=== PATIENT | male | born 1980 | race Caucasian/White ===

== ENCOUNTER 2016-10-03 12:02 | Inpatient (IN) | payer BC ==
[2016-10-03 12:58] LABS: Hematocrit 45 % (42-52); Hemoglobin 15.2 g/dl (14.0-18.0); Mean Corpuscular HGB Conc 34 g/dl (31-36); Mean Corpuscular Hemoglobin 30 pg (27-31); Mean Corpuscular Volume 88 fL (80-94); Mean Platelet Volume 8 um3 (7.4-10.4); Red Blood Count 5.09 10^6/ul (4.0-5.4); Red Cell Distribution Width 12 % (10.5-15); White Blood Count 7.1 10^3/ul (3.5-10.8)
--- NOTE | 2016-10-03 13:05 | RAD ---
INDICATION: Syncope. COMPARISON: Comparison is made with a prior chest x-ray study from July 02, 2015. TECHNIQUE: A portable view of the chest was obtained. FINDINGS: Cardiac and mediastinal contours appear to be within normal limits. The lungs are clear. No pleural effusion is seen. IMPRESSION: NO EVIDENCE FOR ACUTE DISEASE.
[2016-10-03 13:10] LABS: Albumin 4.3 g/dL (3.2-5.2); BUN/Creatinine Ratio 14.9 (8-20); Calcium 9.2 mg/dL (8.6-10.3); EGFR African American 106.9 (>60); EGFR Non-African American 83.1 (>60); Globulin 2.6 g/dL (2-4); Potassium 5.4 mmol/L (3.5-5.0); Total Bilirubin 0.7 mg/dL (0.2-1.0); Total Protein 6.9 g/dL (6.4-8.9)
[2016-10-03 13:11] LABS: Troponin I 0.01 ng/mL (<0.04)
[2016-10-03 13:23] LABS: TSH (Thyroid Stimulating Horm) 2.43 mcIU/mL (0.34-5.60)
[2016-10-03] MEDS ORDERED: NS 0.9% 1000 ML* 1,000 ML IV ONE (13:23)
[2016-10-03] MEDS ORDERED: Acetaminophen TAB* 325 MG PO ONE (13:56)
--- NOTE | 2016-10-03 16:00 | CONS ---
ER CONSULTATION: DATE OF CONSULT: 10/03/16 REASON FOR CONSULTATION: Syncope and bradycardia. CHIEF COMPLAINT: Losing consciousness. HISTORY OF PRESENT ILLNESS: Mr. Agee is a 36-year-old gentleman who was in his usual state of health until yesterday. He awoke yesterday morning feeling just generally crummy, went to work without incident, got normal sleep and this morning still felt generally crummy and under the weather. 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 At some point in the morning he had an episode of diarrhea and at work felt the urge to have another bowel movement and on the way to the bathroom started to feel very dizzy and weak as if he might faint. He said he was on all fours on the ground when a coworker found him, was going to assist him to the bathroom, but then with standing he lost consciousness. public works manager were called, then when sat up to get orthostatic vitals he passed out. He was brought to the emergency room and in the emergency room, orthostatics were again attempted on the monitor and he became white as a sheet, diaphoretic, lost consciousness. Some of his electrodes were pulled off, so we do not have the full monitor strips for the event but according to the nurse present, they were unable to get any radial pulses and the strips available show that he developed a sinus bradycardia followed by sinus pause with some junctional escape beats. The patient is currently lying down getting intravenous fluid and feeling better but he says he still feels as if he tried to stand up and walk out of here, the events would recur. The patient has had no over the counter or prescription medications. The patient has had no recent travel or change in routine. PAST MEDICAL HISTORY: 1. The patient has a past medical history of vagally mediate syncope since childhood (one episode while crying with frustration, anger, an episode watching somebody give blood and more). 2. History of lobar pneumonia, 06/29/15. 3. History of mono. 4. Sinusitis. MEDICATIONS: He is on no home medications. ALLERGIES: No known drug allergies. FAMILY HISTORY: Significant in that his father has a history of vagal syncope. SOCIAL HISTORY: The patient works at [employer]. Nonsmoker, never smoked. No history of recreational drug use. No recent alcohol intake. He lives with his Marybeth who is present during the exam. REVIEW OF SYSTEMS: See history of present illness. He was fine until he developed the above symptoms. He denies chest pain, pressure, heaviness, shortness of breath, coughing. He denies any recurrence of the sinus symptoms he had prior to his pneumonia. No hematuria or dysuria. He is in areas where he could be exposed to Lyme, but denies any awareness of tic bites. All other review of systems was unremarkable. PHYSICAL EXAM: On exam, the patient is 6 feet tall, weighs 185 pounds, has a BMI of 25. Blood pressure on arrival to the ER was 132/75 with a pulse of 68. Sitting, the patient's blood pressure is 136/76 with a pulse of 73. Standing, his pulse rate dropped to 27 and blood pressure unable to be obtained initially and 15 minutes later blood pressure documented at 115/75, strips document marked sinus bradycardia. Currently, the blood pressure is 119/75, pulse is 77 , oxygen saturation 99% on room air and T-max is 101.2. General Appearance: Fit appearing middle aged male lying completely flat, wrapped in towels, in no acute distress. He awakens easily and is appropriate. Psychologically, pleasant , cooperative. Neurologically, awake, alert, and oriented to person, place and time. Cranial nerves II through XII intact. Normal sensory and motor function in the upper and lower extremities. Normal movements in bed. Skin is now warm and dry. No rashes or cyanosis. HEENT: Pupils are equal and round. Mucous membranes moist. Neck without increased JVP. Breath sounds were clear with good effort in all olivo. No wheezing, rales or rhonchi. Coronary: S1, S2 regular, a bit distant but no murmurs or rubs. Abdomen: Soft, nontender. No hepatosplenomegaly. Lower extremities are warm. Strips reviewed are consistent with normal sinus rhythm to sinus bradycardia to a sinus pause with junctional escape beat and a long episode of what appears to be asystole, but with coordinating with the nurses, in fact the leads having come off. DIAGNOSTIC STUDIES/LAB DATA: White count 7.6, hemoglobin 15.2, hematocrit 45, platelets 193. Increased neutrophils, low lymphocytes on the differential. INR 1.1, PTT 38.5. Sodium 135, potassium 5.4, chloride 104, CO2 27, BUN 15, creatinine 1.01, glucose 142 (was mildly elevated with pneumonia as well). Calcium 9.2, lactic acid 1.4, magnesium 2.0, AST 15, ALT 18. Troponin 0.01. TSH 2.43. From labs in 2015, mono negative at that time. IMPRESSION: In summary, David Agee is a 36-year-old gentleman who presented to the emergency room after syncopal events at work at [employer] in the setting of what appears to be a viral illness with a GI component with diarrhea and at that time he fainted. He had the trigger of needing to go to the bathroom. He has a history of vagally mediated events in the past. The witnessed events here consistent with triggers of orthostasis and I suspect that the baroreceptor response is even greater than the chronotropic drop from the high vagal tone. I think he presented with vagally mediated bradycardia as opposed to a primary cardiac etiology. At this point in time, I do not recommend a pacemaker. I did discuss with him that in some cases these are implanted and he was surprised. I recommend for now hydration as is being done, supportive care due to viral illness. I spent considerable time explaining to the patient and his potential triggers, as well as management strategies of staying hydrated and getting to the ground with a prodrome. Very mild hyperkalemia is noted. It is possible that is related to stress or even mild hemolysis but it may be worth looking into the possibility of adrenal insufficiency in the future. Lyme titer was sent as it is endemic in our community and could certainly present like this as well. As this is consistent with a vagally mediated event , I think if he improves with hydration and time, he could go home from the ED but re-evaluation will be necessary post aggressive hydration and time. I am happy to see the patient in followup if desired in the future. CC: Dr. Leigh Zavaleta* [id number]/CPS #: [id number] ROCIO
[2016-10-03] MEDS ORDERED: Ondansetron INJ* 2 MG/ML VIAL IV ONE (17:35)
[2016-10-03] MEDS ORDERED: Ibuprofen TAB* 600 MG PO PRN (18:42)
[2016-10-03] MEDS ORDERED: Ondansetron INJ* 2 MG/ML VIAL IV PRN (18:47)
--- NOTE | 2016-10-03 19:36 | ED ---
Taylor Marrero Matthew, scribed for Jorge A Haider MD on 10/03/16 at 1248 . Syncope/Near Syncope - HPI Summary HPI Summary: A 36 y/o male presents to the ED after syncopating three times since this morning. The patient states that he hasn't been feeling well since yesterday, which worsened today. He's been having diarrhea since this morning, and while at work he felt that he needed to use the restroom again. While walking to the restroom the patient passed out, but was caught and denies trauma. Then the EMS had the patient stand, when he again syncopated. Finally, in the ED, the patient syncopated again while doing orthostatics. Associated symptoms include diarrhea and diaphoresis. He denies nausea and abdominal pain. The patient has no PMHx and does not smoke. The patient states that he hasn't drank any alcohol this month and runs approximately 2 times a week. - History Of Current Complaint Chief Complaint: EDSyncope Time Seen by Provider: 10/03/16 12:21 Hx Obtained From: Patient Onset/Duration: Sudden Onset Timing: Frequency Of Episodes - 3 Context: Witnessed, Loss Of Consciousness Activity At Onset: At Rest Associated Head Trauma: No Aggravating Factor(s): Position Change - Standing Associated Signs And Symptoms: Diarrhea, Diaphoresis - Allergies/Home Medications Allergies/Adverse Reactions: Allergies Allergy/AdvReac Type Severity Reaction Status Date / Time No Known Allergies Allergy Verified 10/03/16 12:07 PMH/Surg Hx/FS Hx/Imm Hx Previously Healthy: Yes Endocrine/Hematology History: Denies: Hx Diabetes Sensory History: Reports: Hx Contacts or Glasses Opthamlomology History: Reports: Hx Contacts or Glasses Infectious Disease History: Denies: Traveled Outside the [place] in Last 30 Days - Family History Known Family History: Positive: Cardiac Disease, Hypertension, Diabetes - Social History Alcohol Use: Daily Alcohol Amount: 2-3/day Substance Use Type: Reports: None Smoking Status (MU): Never Smoked Tobacco Review of Systems Positive: Skin Diaphoresis Eyes: Negative ENT: Negative Cardiovascular: Negative Respiratory: Negative Positive: Diarrhea. Negative: Abdominal Pain, Nausea Genitourinary: Negative Musculoskeletal: Negative Skin: Negative Positive: Syncope - 3x Psychological: Normal All Other Systems Reviewed And Are Negative: Yes Physical Exam Triage Information Reviewed: Yes Vital Signs On Initial Exam: Initial Vitals BP 132/75 10/03/16 12:13 Vital Signs Reviewed: Yes Appearance: Positive: No Pain Distress Skin: Positive: Pale Head/Face: Positive: Normal Head/Face Inspection Eyes: Positive: Normal ENT: Positive: Normal ENT inspection Neck: Positive: Supple, Nontender Respiratory/Lung Sounds: Positive: Clear to Auscultation, Breath Sounds Present Cardiovascular: Positive: RRR Abdomen Description: Positive: Nontender, Soft Bowel Sounds: Positive: Present Musculoskeletal: Positive: Normal Neurological: Positive: Alert, Oriented to Person Place, Time Psychiatric: Positive: Affect/Mood Appropriate Diagnostics - Vital Signs Vital Signs Pulse Resp BP Pulse Ox 10/03/16 12:24 16 118/73 10/03/16 12:22 51 16 114/67 97 10/03/16 12:20 73 14 129/103 99 10/03/16 12:18 69 12 131/76 100 10/03/16 12:16 67 14 100 10/03/16 12:13 132/75 - Laboratory Lab Results: Lab Results 10/03/16 10/03/16 10/03/16 Range/Units 12:10 12:10 12:10 WBC 7.1 (3.5-10.8) 10^3/ul RBC 5.09 (4.0-5.4) 10^6/ul Hgb 15.2 (14.0-18.0) g/dl Hct 45 (42-52) % MCV 88 (80-94) fL MCH 30 (27-31) pg MCHC 34 (31-36) g/dl RDW 12 (10.5-15) % Plt Count 193 (150-450) 10^3/ul MPV 8 (7.4-10.4) um3 Neut % (Auto) 87.1 H (38-83) % Lymph % (Auto) 5.1 L (25-47) % Day % (Auto) 6.1 (1-9) % Eos % (Auto) 1.5 (0-6) % Baso % (Auto) 0.2 (0-2) % Absolute Neuts (auto) 6.2 (1.5-7.7) 10^3/ul Absolute Lymphs (auto) 0.4 L (1.0-4.8) 10^3/ul Absolute Monos (auto) 0.4 (0-0.8) 10^3/ul Absolute Eos (auto) 0.1 (0-0.6) 10^3/ul Absolute Basos (auto) 0 (0-0.2) 10^3/ul Absolute Nucleated RBC 0 10^3/ul Nucleated RBC % 0 INR (Anticoag Therapy) 1.01 (0.89-1.11) Sodium 135 (133-145) mmol/L Potassium 5.4 H (3.5-5.0) mmol/L Chloride 104 (101-111) mmol/L Carbon Dioxide 27 (22-32) mmol/L Anion Gap 4 (2-11) mmol/L BUN 15 (6-24) mg/dL Creatinine 1.01 (0.67-1.17) mg/dL Est GFR ( Amer) 106.9 (>60) Est GFR (Non-Af Amer) 83.1 (>60) BUN/Creatinine Ratio 14.9 (8-20) Glucose 142 H (70-100) mg/dL Lactic Acid (0.5-2.0) mmol/L Calcium 9.2 (8.6-10.3) mg/dL Magnesium 2.0 (1.9-2.7) mg/dL Total Bilirubin 0.70 (0.2-1.0) mg/dL AST 15 (13-39) U/L ALT 18 (7-52) U/L Alkaline Phosphatase 53 (34-104) U/L Troponin I 0.01 (<0.04) ng/mL Total Protein 6.9 (6.4-8.9) g/dL Albumin 4.3 (3.2-5.2) g/dL Globulin 2.6 (2-4) g/dL Albumin/Globulin Ratio 1.7 (1-3) TSH 2.43 (0.34-5.60) mcIU/mL 10/03/16 Range/Units 12:10 WBC (3.5-10.8) 10^3/ul RBC (4.0-5.4) 10^6/ul Hgb (14.0-18.0) g/dl Hct (42-52) % MCV (80-94) fL MCH (27-31) pg MCHC (31-36) g/dl RDW (10.5-15) % Plt Count (150-450) 10^3/ul MPV (7.4-10.4) um3 Neut % (Auto) (38-83) % Lymph % (Auto) (25-47) % Day % (Auto) (1-9) % Eos % (Auto) (0-6) % Baso % (Auto) (0-2) % Absolute Neuts (auto) (1.5-7.7) 10^3/ul Absolute Lymphs (auto) (1.0-4.8) 10^3/ul Absolute Monos (auto) (0-0.8) 10^3/ul Absolute Eos (auto) (0-0.6) 10^3/ul Absolute Basos (auto) (0-0.2) 10^3/ul Absolute Nucleated RBC 10^3/ul Nucleated RBC % INR (Anticoag Therapy) (0.89-1.11) Sodium (133-145) mmol/L Potassium (3.5-5.0) mmol/L Chloride (101-111) mmol/L Carbon Dioxide (22-32) mmol/L Anion Gap (2-11) mmol/L BUN (6-24) mg/dL Creatinine (0.67-1.17) mg/dL Est GFR ( Amer) (>60) Est GFR (Non-Af Amer) (>60) BUN/Creatinine Ratio (8-20) Glucose (70-100) mg/dL Lactic Acid 1.4 (0.5-2.0) mmol/L Calcium (8.6-10.3) mg/dL Magnesium (1.9-2.7) mg/dL Total Bilirubin (0.2-1.0) mg/dL AST (13-39) U/L ALT (7-52) U/L Alkaline Phosphatase (34-104) U/L Troponin I (<0.04) ng/mL Total Protein (6.4-8.9) g/dL Albumin (3.2-5.2) g/dL Globulin (2-4) g/dL Albumin/Globulin Ratio (1-3) TSH (0.34-5.60) mcIU/mL Result Diagrams: 10/03/16 12:10 10/03/16 12:10 Lab Statement: Any lab studies that have been ordered have been reviewed, and results considered in the medical decision making process. - Radiology CXR Xray Interpretation: No Acute Changes - IMPRESSION: NO EVIDENCE FOR ACUTE DISEASE. Radiology Interpretation Completed By: Radiologist - EKG 12:08 Cardiac Rate: NL - 67 bpm EKG Rhythm: Sinus Rhythm Course/Dx Course Of Treatment: Mr. Agee had a very significant and symptomatic bradycardic episode here which was partly captured on the monitor. Some of the monitor strip looks like sinus bradycardia with junctional excape beats and in one area it looks like he may have dropped a beat, therfore I consulted Dr. Preston who felt that is was vagal. We rehydrated him and observed him for several hours but essentially did not make him any better. - Diagnoses Provider Diagnoses: Bradycardia, Syncope and collapse, Viral syndrome - Physician Notifications Discussed Care Of Patient With: Dr. Preston (Cardologist) at 13:02 -- Notified of patient's history and will come to evaluate the cardiac strips. Discharge - Discharge Plan Condition: Stable Disposition: ADMITTED TO [facility] Referrals: Jamir Segura MD [Primary Care Provider] - The documentation as recorded by the Taylor reyes Matthew accurately reflects the service I personally performed and the decisions made by me, Jorge A Haider MD.
[2016-10-03] MEDS: Acetaminophen TAB* 325 MG PO PRN (21:00)
--- NOTE | 2016-10-03 22:01 | HP ---
HOSPITAL MEDICINE HISTORY AND PHYSICAL: DATE OF ADMISSION: 10/03/16 PRIMARY CARE PHYSICIAN: Dr. Segura. ATTENDING PHYSICIAN: Dr. Karla Lehman *(dictation provided by Caity Agee NP) . CHIEF COMPLAINT: Syncope. HISTORY OF PRESENT ILLNESS: Mr. Agee is a 36-year-old male with past medical history of vasovagal syncopal episodes as well as a history of lobar pneumonia, June 2015, requiring hospitalization, who presents to the hospital today with concern for syncopal episode. Mr. Agee states that he works late evening shift at [employer] He got home the night before last at 1 a.m. and was feeling a little under the weather. When he awoke in the morning, he felt like he "been hit by a truck." He was unwell through the day. He has no specific complaints other than just feeling "crummy." When he awoke today, he had some diarrhea x1. He had no nausea or vomiting. No chest pain. No shortness of breath. No cough. No fever. He went to work and while there, felt like he was about to have another bowel movement. He was making his way to the bathroom when he felt his vision darkened and he felt quite lightheaded. He realized he was about to faint and therefore he got on to all fours on the ground. Co-worker came over to help him go to the bathroom. He got to the bathroom, but before he did walk into the door, he fainted and his co-worker helped him to the ground. He awoke and was oriented x3. He remembers all the events. Plans were made to call EMS, who attempted to stand him to check his orthostatic vitals, but he became lightheaded and passed out again. In the emergency room, orthostatic vital signs were attempted again and the patient became lightheaded and passed out on the bed. At that time, the strips from the telemetry monitoring had been pulled loose, but nursing staff noted that the patient was bradycardic. PAST MEDICAL HISTORY: 1. History of vasovagal syncope (one episode while crying with frustration, anger, an episode watching somebody give blood and more). 2. History of lobar pneumonia, 06/29/15. 3. History of mononucleosis. 4. Sinusitis. MEDICATIONS: None. ALLERGIES: None. FAMILY HISTORY: The patient reports his father has vasovagal syncope and his family has history of diabetes and obesity. SOCIAL HISTORY: The patient works at [employer] No report of alcohol, tobacco, or drug use. He lives with his , Marybeth, who is his healthcare proxy. REVIEW OF SYSTEMS: A 14-point review of systems was completed with Mr. Agee and all those not mentioned above were negative. PHYSICAL EXAMINATION GENERAL: Mr. Agee is lying in the bed. He is in no acute distress. He is in good spirits. VITAL SIGNS: Temperature 98.7, heart rate 91, respiratory rate 21, O2 saturation 96% on room air, blood pressure 101/54. LUNGS: Clear to auscultation bilaterally with no accessory muscle use and good aeration. HEART: S1, S2. No murmur, rub, or gallop and regular. ABDOMEN: Soft, nontender with bowel sounds positive x4. EXTREMITIES: No cyanosis or edema. NEURO: He is alert and oriented x3. He moves all extremities equally. There is no facial asymmetry or focal weakness. Extraocular movements are intact. SKIN: Intact. DIAGNOSTIC STUDIES/LAB DATA: Sodium 135, potassium 5.4, chloride 104, serum bicarbonate 27, BUN 15, creatinine 1.01, glucose 142, lactic acid 1.4. Troponin 0.01. WBC 7.1, hemoglobin 15.2, hematocrit 45, and platelet count 193. Chest x-ray shows "no evidence for acute disease." EKG shows sinus rhythm, heart rate of 70s, and no evidence of ischemia. ASSESSMENT AND PLAN: Mr. Agee is a 36-year-old male with past medical history of vasovagal syncope who had syncopal episodes x 2 at work in setting of new onset diarrhea. Our plan is for observation in the hospital. 1. Vasovagal syncope: Plan to continue with IV hydration and to continue to monitor the patient overnight. He will have orthostatic vital signs in the a.m. and will attempt to ambulate him when he is feeling better. He will have Zofran available for any nausea and vomiting. 2. Diarrhea: The patient has only had diarrhea x2. Plan for IV hydration. I do not see any indication for further workup or Imodium at this point, but I will continue to monitor closely. 3. DVT prophylaxis: Early mobility. 4. Disposition: To medical floor. TIME SPENT: Approximately 60 minutes was spent on the admission of this patient , more than half time spent with the patient at the bedside reviewing the events leading up to this hospitalization, performing the physical examination, and reviewing the plan of care. CAITY AGEE NP CC: Dr. Segura* [id number]/CPS #: [id number] [facility]
--- NOTE | 2016-10-04 12:23 | PN ---
Subjective Date of Service: 10/04/16 Interval History: Pt's sBP when standing up was down to 80 today, but no syncope noted. Had one loose BM today and no n/v. Denies abd pain Objective Active Medications: Acetaminophen (Tylenol Tab*) 650 mg PO Q6H PRN PRN Reason: pain/fever Last Admin: 10/03/16 21:00 Dose: 650 mg Lactated Ringer's (Lactated Ringers 1000 Ml Bag*) 1,000 mls @ 150 mls/hr IV PER RATE MINI Last Admin: 10/04/16 07:53 Dose: 150 mls/hr Ibuprofen (Motrin Tab*) 600 mg PO Q6H PRN PRN Reason: PAIN Ondansetron HCl (Zofran Inj*) 4 mg IV Q6H PRN PRN Reason: NAUSEA Vital Signs 10/03/16 10/03/16 10/03/16 18:00 18:09 18:30 Temperature Pulse Rate 91 92 94 Respiratory 21 22 16 Rate Blood Pressure 109/58 129/71 (mmHg) O2 Sat by Pulse 96 95 97 Oximetry 10/03/16 10/03/16 10/03/16 18:44 19:00 19:30 Temperature Pulse Rate 96 94 86 Respiratory 18 19 20 Rate Blood Pressure 116/70 (mmHg) O2 Sat by Pulse 96 96 95 Oximetry 10/03/16 10/03/16 10/03/16 19:45 19:50 20:00 Temperature 98.5 F 99.6 F Pulse Rate 87 Respiratory 20 18 Rate Blood Pressure 125/72 (mmHg) O2 Sat by Pulse 97 Oximetry 10/04/16 10/04/16 10/04/16 00:16 03:50 07:20 Temperature 99.2 F 99.7 F 99.9 F Pulse Rate 94 81 82 Respiratory 16 16 16 Rate Blood Pressure 114/67 107/64 120/69 (mmHg) O2 Sat by Pulse 96 97 99 Oximetry 10/04/16 10/04/16 10/04/16 07:21 07:24 07:25 Temperature Pulse Rate 94 65 65 Respiratory Rate Blood Pressure 112/65 85/44 85/44 (mmHg) O2 Sat by Pulse 99 Oximetry 10/04/16 10/04/16 10/04/16 08:38 10:10 11:07 Temperature 98.5 F 99.4 F Pulse Rate 81 84 74 Respiratory 16 Rate Blood Pressure 122/71 118/69 119/68 (mmHg) O2 Sat by Pulse 99 96 Oximetry Oxygen Devices in Use Now: None Appearance: 36 yo M in nAd, aAOx3 Eyes: No Scleral Icterus, PERRLA Ears/Nose/Mouth/Throat: NL Teeth, Lips, Gums, Mucous Membranes Moist Neck: NL Appearance and Movements; NL JVP, Trachea Midline Respiratory: Symmetrical Chest Expansion and Respiratory Effort, Clear to Auscultation Cardiovascular: NL Sounds; No Murmurs; No JVD, RRR Abdominal: NL Sounds; No Tenderness; No Distention Lymphatic: No Cervical Adenopathy Extremities: No Edema, No Clubbing, Cyanosis Skin: No Rash or Ulcers, No Nodules or Sclerosis Neurological: Alert and Oriented x 3, NL Muscle Strength and Tone Result Diagrams: 10/03/16 12:10 10/03/16 12:10 Additional Lab and Data: Lab Results 10/03/16 10/03/16 10/03/16 Range/Units 12:10 12:10 12:10 WBC 7.1 (3.5-10.8) 10^3/ul RBC 5.09 (4.0-5.4) 10^6/ul Hgb 15.2 (14.0-18.0) g/dl Hct 45 (42-52) % MCV 88 (80-94) fL MCH 30 (27-31) pg MCHC 34 (31-36) g/dl RDW 12 (10.5-15) % Plt Count 193 (150-450) 10^3/ul MPV 8 (7.4-10.4) um3 Neut % (Auto) 87.1 H (38-83) % Lymph % (Auto) 5.1 L (25-47) % [place] % (Auto) 6.1 (1-9) % Eos % (Auto) 1.5 (0-6) % Baso % (Auto) 0.2 (0-2) % Absolute Neuts (auto) 6.2 (1.5-7.7) 10^3/ul Absolute Lymphs (auto) 0.4 L (1.0-4.8) 10^3/ul Absolute Monos (auto) 0.4 (0-0.8) 10^3/ul Absolute Eos (auto) 0.1 (0-0.6) 10^3/ul Absolute Basos (auto) 0 (0-0.2) 10^3/ul Absolute Nucleated RBC 0 10^3/ul Nucleated RBC % 0 INR (Anticoag Therapy) 1.01 (0.89-1.11) Sodium 135 (133-145) mmol/L Potassium 5.4 H (3.5-5.0) mmol/L Chloride 104 (101-111) mmol/L Carbon Dioxide 27 (22-32) mmol/L Anion Gap 4 (2-11) mmol/L BUN 15 (6-24) mg/dL Creatinine 1.01 (0.67-1.17) mg/dL Est GFR ( Amer) 106.9 (>60) Est GFR (Non-Af Amer) 83.1 (>60) BUN/Creatinine Ratio 14.9 (8-20) Glucose 142 H (70-100) mg/dL Lactic Acid (0.5-2.0) mmol/L Calcium 9.2 (8.6-10.3) mg/dL Magnesium 2.0 (1.9-2.7) mg/dL Total Bilirubin 0.70 (0.2-1.0) mg/dL AST 15 (13-39) U/L ALT 18 (7-52) U/L Alkaline Phosphatase 53 (34-104) U/L Troponin I 0.01 (<0.04) ng/mL Total Protein 6.9 (6.4-8.9) g/dL Albumin 4.3 (3.2-5.2) g/dL Globulin 2.6 (2-4) g/dL Albumin/Globulin Ratio 1.7 (1-3) TSH 2.43 (0.34-5.60) mcIU/mL 10/03/16 Range/Units 12:10 WBC (3.5-10.8) 10^3/ul RBC (4.0-5.4) 10^6/ul Hgb (14.0-18.0) g/dl Hct (42-52) % MCV (80-94) fL MCH (27-31) pg MCHC (31-36) g/dl RDW (10.5-15) % Plt Count (150-450) 10^3/ul MPV (7.4-10.4) um3 Neut % (Auto) (38-83) % Lymph % (Auto) (25-47) % [place] % (Auto) (1-9) % Eos % (Auto) (0-6) % Baso % (Auto) (0-2) % Absolute Neuts (auto) (1.5-7.7) 10^3/ul Absolute Lymphs (auto) (1.0-4.8) 10^3/ul Absolute Monos (auto) (0-0.8) 10^3/ul Absolute Eos (auto) (0-0.6) 10^3/ul Absolute Basos (auto) (0-0.2) 10^3/ul Absolute Nucleated RBC 10^3/ul Nucleated RBC % INR (Anticoag Therapy) (0.89-1.11) Sodium (133-145) mmol/L Potassium (3.5-5.0) mmol/L Chloride (101-111) mmol/L Carbon Dioxide (22-32) mmol/L Anion Gap (2-11) mmol/L BUN (6-24) mg/dL Creatinine (0.67-1.17) mg/dL Est GFR ( Amer) (>60) Est GFR (Non-Af Amer) (>60) BUN/Creatinine Ratio (8-20) Glucose (70-100) mg/dL Lactic Acid 1.4 (0.5-2.0) mmol/L Calcium (8.6-10.3) mg/dL Magnesium (1.9-2.7) mg/dL Total Bilirubin (0.2-1.0) mg/dL AST (13-39) U/L ALT (7-52) U/L Alkaline Phosphatase (34-104) U/L Troponin I (<0.04) ng/mL Total Protein (6.4-8.9) g/dL Albumin (3.2-5.2) g/dL Globulin (2-4) g/dL Albumin/Globulin Ratio (1-3) TSH (0.34-5.60) mcIU/mL Microbiology and Other Data: Microbiology 10/04/16 00:25 Influenza Types A,B Antigen (JOHN) - Final Nasopharyngeal Specimen received for Influenza A/B Molecular testing Assess/Plan/Problems-Billing Assessment: 36 yo M with 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 - Patient Problems (1) Syncope due to orthostatic hypotension Comment: Also with episoedes of bradycardia -due to vagal stimulation ( loose BM 's). appreciate cardiology's consult. Telem shows no pierce bradycardia, but pt is still orthostatic this Am and will cont IVF x 24 H (2) Viral syndrome Comment: c/o myalgias, fatigue, loose stools cont IVF. (3) DVT prophylaxis Comment: ambulation Status and Disposition: due to continuation of orthostasis , will [facility] on inpatient and cont IVF
[2016-10-04] MEDS: Acetaminophen TAB* 325 MG PO PRN (13:53)
[2016-10-04] MEDS ORDERED: Acetaminophen TAB* 325 MG PO PRN (16:49)
[2016-10-04] MEDS ORDERED: Ibuprofen TAB* 600 MG ONE (16:53)
[2016-10-04] MEDS: Ibuprofen TAB* 600 MG PO PRN ×2 (16:55→23:46)
[2016-10-04 19:11] LABS: Urine Bacteria Absent (Absent); Urine Bilirubin Negative (Negative); Urine Glucose Negative (Negative); Urine Nitrite Negative (Negative)
[2016-10-04] MEDS ORDERED: Calcium Carbonate CHEW TAB* 500 MG (TUMS) PO PRN (21:40)
[2016-10-04] MEDS ORDERED: Simethicone CHEW TAB* 80 MG PO PRN (21:41)
[2016-10-05 05:43] LABS: Hematocrit 38 % (42-52); Hemoglobin 13.1 g/dl (14.0-18.0); Mean Corpuscular HGB Conc 35 g/dl (31-36); Mean Corpuscular Hemoglobin 30 pg (27-31); Mean Corpuscular Volume 86 fL (80-94); Mean Platelet Volume 8 um3 (7.4-10.4); Red Blood Count 4.36 10^6/ul (4.0-5.4); Red Cell Distribution Width 13 % (10.5-15); White Blood Count 4.7 10^3/ul (3.5-10.8)
[2016-10-05 05:57] LABS: BUN/Creatinine Ratio 15.5 (8-20); C Reactive Protein 120.55 mg/L (< 5.00); Calcium 8.4 mg/dL (8.6-10.3); EGFR African American 160.5 (>60); EGFR Non-African American 124.8 (>60); Potassium 3.3 mmol/L (3.5-5.0)
[2016-10-05] MEDS: Ibuprofen TAB* 600 MG PO PRN (07:56)
[2016-10-05] MEDS ORDERED: Potassium Chlor TAB* 20 MEQ TAB.ER PO ONE (08:28)
--- NOTE | 2016-10-05 13:01 | PN ---
Subjective Date of Service: 10/05/16 Interval History: pt vomited last night, but had breakfast this AM with no difficulties. C/o abd bloating, but no pain. Has a lot of flatus, scant BM Objective Active Medications: Acetaminophen (Tylenol Tab*) 650 mg PO Q4H PRN PRN Reason: PAIN OR TEMPERATURE Last Admin: 10/04/16 19:40 Dose: 650 mg Calcium Carbonate (Tums*) 500 mg PO Q4H PRN PRN Reason: DYSPEPSIA Last Admin: 10/04/16 21:56 Dose: 500 mg Ibuprofen (Motrin Tab*) 600 mg PO Q6H PRN PRN Reason: pain/fever Last Admin: 10/05/16 07:56 Dose: 600 mg Ondansetron HCl (Zofran Inj*) 4 mg IV Q6H PRN PRN Reason: NAUSEA Last Admin: 10/05/16 01:47 Dose: 4 mg Simethicone (Mylicon*) 80 mg PO Q6H PRN PRN Reason: gas/bloating Last Admin: 10/04/16 21:57 Dose: 80 mg Vital Signs 10/04/16 10/04/16 10/04/16 16:50 19:31 19:58 Temperature 102.4 F 99.6 F Pulse Rate 82 Respiratory 16 16 Rate Blood Pressure 126/69 (mmHg) O2 Sat by Pulse 99 Oximetry 10/04/16 10/05/16 10/05/16 23:50 01:10 03:42 Temperature 101.4 F 100.2 F 99.1 F Pulse Rate 91 88 Respiratory 20 16 Rate Blood Pressure 130/82 127/75 (mmHg) O2 Sat by Pulse 95 96 Oximetry 10/05/16 10/05/16 10/05/16 06:51 07:31 11:15 Temperature 98.0 F Pulse Rate 76 80 Respiratory 16 16 Rate Blood Pressure 127/69 127/75 (mmHg) O2 Sat by Pulse 95 100 Oximetry Oxygen Devices in Use Now: None Appearance: 36 yo M in nAD, aAOx3 Eyes: No Scleral Icterus, PERRLA Ears/Nose/Mouth/Throat: NL Teeth, Lips, Gums, Mucous Membranes Moist Neck: NL Appearance and Movements; NL JVP, Trachea Midline Respiratory: Symmetrical Chest Expansion and Respiratory Effort, Clear to Auscultation Cardiovascular: NL Sounds; No Murmurs; No JVD, RRR Abdominal: - - distended, soft,NT, BS+ Lymphatic: No Cervical Adenopathy Extremities: No Edema, No Clubbing, Cyanosis Skin: No Rash or Ulcers, No Nodules or Sclerosis Neurological: Alert and Oriented x 3, NL Muscle Strength and Tone Result Diagrams: 10/05/16 05:20 10/05/16 05:20 Additional Lab and Data: Lab Results 10/03/16 10/03/16 10/03/16 Range/Units 12:10 12:10 12:10 WBC 7.1 (3.5-10.8) 10^3/ul RBC 5.09 (4.0-5.4) 10^6/ul Hgb 15.2 (14.0-18.0) g/dl Hct 45 (42-52) % MCV 88 (80-94) fL MCH 30 (27-31) pg MCHC 34 (31-36) g/dl RDW 12 (10.5-15) % Plt Count 193 (150-450) 10^3/ul MPV 8 (7.4-10.4) um3 Neut % (Auto) 87.1 H (38-83) % Lymph % (Auto) 5.1 L (25-47) % [place] % (Auto) 6.1 (1-9) % Eos % (Auto) 1.5 (0-6) % Baso % (Auto) 0.2 (0-2) % Absolute Neuts (auto) 6.2 (1.5-7.7) 10^3/ul Absolute Lymphs (auto) 0.4 L (1.0-4.8) 10^3/ul Absolute Monos (auto) 0.4 (0-0.8) 10^3/ul Absolute Eos (auto) 0.1 (0-0.6) 10^3/ul Absolute Basos (auto) 0 (0-0.2) 10^3/ul Absolute Nucleated RBC 0 10^3/ul Nucleated RBC % 0 INR (Anticoag Therapy) 1.01 (0.89-1.11) Sodium 135 (133-145) mmol/L Potassium 5.4 H (3.5-5.0) mmol/L Chloride 104 (101-111) mmol/L Carbon Dioxide 27 (22-32) mmol/L Anion Gap 4 (2-11) mmol/L BUN 15 (6-24) mg/dL Creatinine 1.01 (0.67-1.17) mg/dL Est GFR ( Amer) 106.9 (>60) Est GFR (Non-Af Amer) 83.1 (>60) BUN/Creatinine Ratio 14.9 (8-20) Glucose 142 H (70-100) mg/dL Lactic Acid (0.5-2.0) mmol/L Calcium 9.2 (8.6-10.3) mg/dL Magnesium 2.0 (1.9-2.7) mg/dL Total Bilirubin 0.70 (0.2-1.0) mg/dL AST 15 (13-39) U/L ALT 18 (7-52) U/L Alkaline Phosphatase 53 (34-104) U/L Troponin I 0.01 (<0.04) ng/mL Total Protein 6.9 (6.4-8.9) g/dL Albumin 4.3 (3.2-5.2) g/dL Globulin 2.6 (2-4) g/dL Albumin/Globulin Ratio 1.7 (1-3) TSH 2.43 (0.34-5.60) mcIU/mL 10/03/16 Range/Units 12:10 WBC (3.5-10.8) 10^3/ul RBC (4.0-5.4) 10^6/ul Hgb (14.0-18.0) g/dl Hct (42-52) % MCV (80-94) fL MCH (27-31) pg MCHC (31-36) g/dl RDW (10.5-15) % Plt Count (150-450) 10^3/ul MPV (7.4-10.4) um3 Neut % (Auto) (38-83) % Lymph % (Auto) (25-47) % [place] % (Auto) (1-9) % Eos % (Auto) (0-6) % Baso % (Auto) (0-2) % Absolute Neuts (auto) (1.5-7.7) 10^3/ul Absolute Lymphs (auto) (1.0-4.8) 10^3/ul Absolute Monos (auto) (0-0.8) 10^3/ul Absolute Eos (auto) (0-0.6) 10^3/ul Absolute Basos (auto) (0-0.2) 10^3/ul Absolute Nucleated RBC 10^3/ul Nucleated RBC % INR (Anticoag Therapy) (0.89-1.11) Sodium (133-145) mmol/L Potassium (3.5-5.0) mmol/L Chloride (101-111) mmol/L Carbon Dioxide (22-32) mmol/L Anion Gap (2-11) mmol/L BUN (6-24) mg/dL Creatinine (0.67-1.17) mg/dL Est GFR ( Amer) (>60) Est GFR (Non-Af Amer) (>60) BUN/Creatinine Ratio (8-20) Glucose (70-100) mg/dL Lactic Acid 1.4 (0.5-2.0) mmol/L Calcium (8.6-10.3) mg/dL Magnesium (1.9-2.7) mg/dL Total Bilirubin (0.2-1.0) mg/dL AST (13-39) U/L ALT (7-52) U/L Alkaline Phosphatase (34-104) U/L Troponin I (<0.04) ng/mL Total Protein (6.4-8.9) g/dL Albumin (3.2-5.2) g/dL Globulin (2-4) g/dL Albumin/Globulin Ratio (1-3) TSH (0.34-5.60) mcIU/mL Microbiology and Other Data: Microbiology 10/04/16 00:25 Influenza Types A,B Antigen (JOHN) - Final Nasopharyngeal Specimen received for Influenza A/B Molecular testing Assess/Plan/Problems-Billing Assessment: 36 yo M with 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 - Patient Problems (1) Syncope due to orthostatic hypotension Comment: Also with episoedes of bradycardia -due to vagal stimulation ( loose BM 's). appreciate cardiology's consult. Telem shows no more bradycardia. d/c telem (2) Viral syndrome Comment: c/o myalgias, fatigue, loose stools and vomiting. Fever of 102 yesterday. flu test neg, UA unremarkable. Blood cx pending (3) DVT prophylaxis Comment: ambulation Status and Disposition: d/c IVF, ambulate, reassess in PM, possible d/c today
[2016-10-05 16:34] VITALS: BP 124/76
--- NOTE | 2016-10-06 21:34 | DS ---
CC: Dr. Leigh Zavaleta; Dr. Preston DISCHARGE SUMMARY: DATE OF ADMISSION: 10/03/16 DATE OF DISCHARGE: 10/05/16 PRIMARY CARE PROVIDER: Dr. Leigh Zavaleta. DISCHARGE DIAGNOSES: 1. Syncope, most likely vasovagal. 2. Most likely viral gastroenteritis which manifested with nausea, vomiting, and abdominal distenti on. CONSULTATIONS DURING THE HOSPITAL STAY: Included Dr. Preston from Cardiology in regards to syncope and sinus bradycardia. SECONDARY DIAGNOSIS: 1. 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 2. History of pneumonia in 2015. 3. History of mononucleosis. 4. Sinusitis. MEDICATIONS ON DISCHARGE: None. LABORATORY DATA: Obtained prior to discharge on 10/05/16, sodium of 134, potassium 3.3, chloride 10 4, carbon dioxide 24, BUN 11, and creatinine 0.71. White blood cell count 4.7, hemoglobin of 13.1, hematocrit of 34, and platelets of 172. The patient's C-reactive protein at the time of discharge was 120. TSH was 2.43. Portable chest x-ray obtained on admission, impression: "No evidence for acute disease." Microbiology data showed negative influenza test. Blood cultures were also negative to date at [facility]. HOSPITALIZATION COURSE: David Agee is a 36-year-old male who fell "under the weather" for the past several days. The patient presented to the hospital after 2 episodes of syncope on the 03 of October. The one that was noted in the emergency department, the patient was orthostatic and was hyp otensive when he stood up. He also was noted to be bradycardic at that time. Dr. Preston was consu lted on the case. It was noted the patient has a history of vagally mediated syncope and at this po int the patient had both orthostatic hypotension as well as nausea, abdominal discomfort, and diarrh ea that would mediate both vagal response as well as orthostatic hypotension and orthostatic syncope . The patient was admitted to telemetry monitored bed for observation. After initial hydration, th e patient continued to have orthostatic hypotension but at that point, not symptomatic. He continue d to be on telemetry monitored bed with no further episodes of bradycardia. He had an episode of [place] and vomiting on 10/04/16. He also developed a fever of 102 degrees. At that point, blood cultu res were obtained as well as urinalysis. Both of those studies were negative to date. Prior to discharge, the patient was ambulating without any problem. He still complained of abdomina l distention and subsequent diarrhea, but no more nausea and he was able to tolerate a regular diet. At discharge, the patient is recommended to follow up with his primary care provider, Dr. Zavaleta, in approximately 4 to 7 days. At this point, the patient most likely had vasovagal and orthostatic syncope due to viral gastroente ritis. For physical exam at discharge, please see daily progress notes. TIME SPENT: Approximately 35 minutes was spent on the patient's discharge. [id number]/[facility] #: [id number]
== END 2016-10-05 18:14 | disposition home or self-care (01) | DRG 249 ==
LOC: ED 12:02 → MEDTELE 17:40 → OBSVTOIN 10-04 13:33
PROVIDERS: ADMIT Internal Medicine; ATTEND Internal Medicine
DX: A08.4 Viral intestinal infection, unspecified (principal); E87.5 Hyperkalemia; R00.1 Bradycardia, unspecified; I95.1 Orthostatic hypotension; Z82.49 Family history of ischemic heart disease and other diseases of the circulatory system; Z83.3 Family history of diabetes mellitus; Z72.89 Other problems related to lifestyle; Z87.01 Personal history of pneumonia (recurrent); Z84.89 Family history of other specified conditions
CPT/HCPCS: 36415; 71010; 80048; 80053; 81003; 81015; 83605; 83735; 84443; 84484; 85025; 85610; 86140; 86618; 87040; 87502; 93005; A9270-GY; G0378; J2405

== ENCOUNTER → 2017-03-24 12:25 | Emergency (ER) | payer BC ==
[~2017-03-24 12:25] MED LIST: Acetaminophen TAB* 325 MG PO ONE; Iohexol 300* (CONTRAST) 10 ML SDV IV ONE; NS 0.9% 1000 ML* 1,000 ML IV ONE
[2017-03-24 14:07] LABS: Hematocrit 48 % (42-52); Hemoglobin 16.5 g/dl (14.0-18.0); Mean Corpuscular HGB Conc 35 g/dl (31-36); Mean Corpuscular Hemoglobin 31 pg (27-31); Mean Corpuscular Volume 90 fL (80-94); Mean Platelet Volume 8 um3 (7.4-10.4); Red Blood Count 5.27 10^6/ul (4.0-5.4); Red Cell Distribution Width 13 % (10.5-15); White Blood Count 6.2 10^3/ul (3.5-10.8)
[2017-03-24 14:24] LABS: Albumin 4.7 g/dL (3.2-5.2); BUN/Creatinine Ratio 11.7 (8-20); C Reactive Protein 107.08 mg/L (< 5.00); Calcium 9.8 mg/dL (8.6-10.3); EGFR African American 104.5 (>60); EGFR Non-African American 81.3 (>60); Globulin 3.7 g/dL (2-4); Potassium 4.1 mmol/L (3.5-5.0); Total Bilirubin 0.9 mg/dL (0.2-1.0); Total Protein 8.4 g/dL (6.4-8.9)
[2017-03-24 15:57] VITALS: BP 150/82
--- NOTE | 2017-03-24 16:02 | ED ---
Influenza-Like Illness - HPI Summary HPI Summary: Patient presents to the ED from [facility] with abnormalities on his chest xray. He was seen there today d/t flu like symptoms. He notes to fevers at 101.5, sweats, chills, malaise, myalgias and heavy cough x 4 days which has remained constant despite tylenola and ibuprofen use. He was dx with PNA last year, but states this feels somewhat different. Denies known sick contacts. Flu vaccine is NOT UTD. He denies N/V/C/D. Notes to some weakness. Denies neck pain, neck stiffness, photophobia. He is otherwise healthy. Despite feeling ill, he was able to run 9-10 miles in a race yesterday, although his chest was very heavy with worsening cough immediately following the race. Denies chest pain. He states he is eating and drinking OK. His recently returned from [facility] 5 days ago, but denies any symptoms or illness. - History of Current Complaint Chief Complaint: EDFluSymptoms Time Seen by Provider: 03/24/17 13:04 Hx Obtained From: Patient Onset/Duration: Gradual Onset Severity: Moderate Associated Signs & Symptoms: T Max - 102.5, F/C, Cough, Sore Throat, Nasal Congestion, Headache Related Hx: Possible Flu/Infectious Exposure - Risk Factors Influenza Risk Factors: Negative - Allergy/Home Medications Allergies/Adverse Reactions: Allergies Allergy/AdvReac Type Severity Reaction Status Date / Time No Known Allergies Allergy Verified 10/03/16 12:07 PMH/Surg Hx/FS Hx/Imm Hx Previously Healthy: Yes Endocrine/Hematology History: Denies: Hx Diabetes Sensory History: Denies: Hx Contacts or Glasses, Hx Hearing Aid Opthamlomology History: Denies: Hx Contacts or Glasses - Immunization History Hx Pertussis Vaccination: No Immunizations Up to Date: Unable to Obtain/Confirm Infectious Disease History: No Infectious Disease History: Denies: Traveled Outside the [place] in Last 30 Days - Family History Known Family History: Positive: Cardiac Disease, Hypertension, Diabetes - Social History Occupation: Employed Full-time Lives: With Family Alcohol Use: Weekly Alcohol Amount: 4 drinks per week Hx Substance Use: No Substance Use Type: Reports: None Hx Tobacco Use: No Smoking Status (MU): Never Smoked Tobacco Review of Systems - ROS Summary Review of Systems Summary: Constitutional: The patient endorses + fever, sweats and chills. Denies STEINER HEENT: Head: The patient denies headaches or dizziness. Eyes: The patient denies diplopia, blurry vision, eye pain, eye discharge, photophobia. ENT: The patient endorses congestion. Throat: The patient denies sore throats or hoarseness. Cardiovascular: The patient denies chest pain. Denies palpitations, syncope, night cramps, or orthostasis. Respiratory: The patient endorses cough, sputum production. Denies hemoptysis , dyspnea, wheezing. Gastrointestinal: The patient denies nausea, vomiting, diarrhea. Denies odynophagia, dysphagia, hematemesis, melenemesis. Genitourinary: Patient denies dysuria, hematuria, or pyuria. Patient denies back pain. Denies other urinary symptoms. Muscles: The patient endorses diffuse myalgias. Joints: The patient denies arthralgia and/or arthritis. Neurologic: The patient denies headache, loss of consciousness, or seizure. Dermatologic: The patient denies hyperpigmentation, rash, or photosensitivity. Positive: Fever, Chills, Fatigue, Skin Diaphoresis Eyes: Negative Positive: Nasal Discharge. Negative: Sore Throat, Ear Ache Negative: Palpitations, Chest Pain Positive: Shortness Of Breath, Cough Negative: Abdominal Pain, Vomiting, Diarrhea, Nausea Positive: no symptoms reported, see HPI Positive: Myalgia. Negative: Arthralgia, Decreased ROM Skin: Negative Positive: Headache, Weakness Psychological: Normal All Other Systems Reviewed And Are Negative: Yes Physical Exam - Summary Physical Exam Summary: Appearance: WDW, comfortable, pleasant, alert, diaphoretic with a mask on. Skin: Soft dry skin, no lesions. Nailbeds pink with no cyanosis or clubbing. No petechia noted. Eyes: MAURICE, EOMI, Conjunctiva pink with no redness or exudates. Mouth: Dentition without lesions. Moist mucosa Neck: Full range of motion. Palpable thyroid. Trachea at midline. No lymphadenopathy. Pulm: Chest symmetrical expansion. No deformities on posterior chest wall. Left lower lung base with rhonchi. No wheezing noted throughout. CV: No JVD. No deformities on anterior chest wall. Heart sounds-RRR, Normal S1 and single S2. No S3, S4, rubs, or murmurs. Carotids 2+ bilaterally without bruits. . Abd: Soft abdomen. Negative murphys, negative Rovsings. No CVA tenderness bilaterally. Bowel sounds present. No CVA tenderness bilaterally. exam not performed Musculoskeletal: Full strength and ROM normal in upper and lower extremities. Neuro: A&OX3 Psych: Logical, coherent Triage Information Reviewed: Yes Vital Signs On Initial Exam: Initial Vitals Temp Pulse Resp BP Pulse Ox 100.2 F 90 17 131/74 97 03/24/17 12:29 03/24/17 12:29 03/24/17 12:29 03/24/17 12:29 03/24/17 12:29 Vital Signs Reviewed: Yes Appearance: Positive: Well-Appearing, Well-Nourished Skin: Positive: Warm, Skin Color Reflects Adequate Perfusion Head/Face: Positive: Normal Head/Face Inspection Eyes: Positive: EOMI, MAURICE, Conjunctiva Clear Neck: Positive: Supple, No Lymphadenopathy Respiratory/Lung Sounds: Positive: Rhonchi - left lower lung base Cardiovascular: Positive: RRR, Pulses are Symmetrical in both Upper and Lower Extremities Musculoskeletal: Positive: Normal, Strength/ROM Intact Neurological: Positive: Sensory/Motor Intact, Alert, Oriented to Person Place, Time, Speech Normal Psychiatric: Positive: Normal - [place] Coma Scale Coma Scale Total: 15 Diagnostics - Vital Signs Vital Signs Temp Pulse Resp BP Pulse Ox 03/24/17 14:30 93 142/83 94 03/24/17 14:00 86 156/90 97 03/24/17 13:30 91 157/90 97 03/24/17 13:19 93 99 03/24/17 13:15 132/72 03/24/17 12:29 100.2 F 90 17 131/74 97 - Laboratory Lab Results: Lab Results 03/24/17 03/24/17 03/24/17 Range/Units 13:40 13:40 13:40 WBC 6.2 (3.5-10.8) 10^3/ul RBC 5.27 (4.0-5.4) 10^6/ul Hgb 16.5 (14.0-18.0) g/dl Hct 48 (42-52) % MCV 90 (80-94) fL MCH 31 (27-31) pg MCHC 35 (31-36) g/dl RDW 13 (10.5-15) % Plt Count 202 (150-450) 10^3/ul MPV 8 (7.4-10.4) um3 Neut % (Auto) 73.2 (38-83) % Lymph % (Auto) 13.7 L (25-47) % [place] % (Auto) 12.7 H (1-9) % Eos % (Auto) 0 (0-6) % Baso % (Auto) 0.4 (0-2) % Absolute Neuts (auto) 4.6 (1.5-7.7) 10^3/ul Absolute Lymphs (auto) 0.9 L (1.0-4.8) 10^3/ul Absolute Monos (auto) 0.8 (0-0.8) 10^3/ul Absolute Eos (auto) 0 (0-0.6) 10^3/ul Absolute Basos (auto) 0 (0-0.2) 10^3/ul Absolute Nucleated RBC 0.01 10^3/ul Nucleated RBC % 0.2 Sodium 135 (133-145) mmol/L Potassium 4.1 (3.5-5.0) mmol/L Chloride 99 L (101-111) mmol/L Carbon Dioxide 27 (22-32) mmol/L Anion Gap 9 (2-11) mmol/L BUN 12 (6-24) mg/dL Creatinine 1.03 (0.67-1.17) mg/dL Est GFR ( Amer) 104.5 (>60) Est GFR (Non-Af Amer) 81.3 (>60) BUN/Creatinine Ratio 11.7 (8-20) Glucose 129 H (70-100) mg/dL Lactic Acid 1.5 (0.5-2.0) mmol/L Calcium 9.8 (8.6-10.3) mg/dL Total Bilirubin 0.90 (0.2-1.0) mg/dL AST 20 (13-39) U/L ALT 17 (7-52) U/L Alkaline Phosphatase 68 (34-104) U/L C-Reactive Protein 107.08 H (< 5.00) mg/L Total Protein 8.4 (6.4-8.9) g/dL Albumin 4.7 (3.2-5.2) g/dL Globulin 3.7 (2-4) g/dL Albumin/Globulin Ratio 1.3 (1-3) Result Diagrams: 03/24/17 13:40 03/24/17 13:40 Lab Statement: Any lab studies that have been ordered have been reviewed, and results considered in the medical decision making process. Flu Symptom Course/Dx - Course Course Of Treatment: Patient evaluated for flu like symptoms. Report from shows radiology report as: questionable irregularity in the left perihilar regions. Underlying abnormality must be considered. Follow-up CT chest with contrast is recommended. No peripheral infiltrates of other findings. Lungs with rhonchi in the left lung base without rhonchi in the right lung base. No wheezing noted throughout. CT with contrast obtained: IMPRESSION: LEFT lower lobe pneumonia. The distribution of inflammatory infiltrate is. different than on the 2015 exam which involved the LEFT upper lobe. Radiographic follow-up. after therapy suggested to assess for resolution. Patient is given Doxycycline 100mg BID x 7 days. Robitussin with codeine given for cough. Strict return precautions for worsening symptoms. He has been hospitalized in the past for PNA with IV abx. He understands the precautions and will return for any worsening sxs. Medications were reveiwed with patient. Encouarged to follow up with PCP or return to ED for worsening symptoms. Return precautions given. Patient understands and agrees with plan. Ok for discharge. - Diagnoses Differential Diagnosis/HQI/PQRI: Positive: Influenza, Pneumonia, Upper Respiratory Infection Provider Diagnoses: Pneumonia Discharge - Discharge Plan Condition: Stable Disposition: HOME Prescriptions: DOXYcycline CAP(*) [DOXYcycline 100MG CAP(*)] 100 mg PO BID #14 cap guaiFENesin/CODIEN 100MG-10MG* [Robitussin AC 100Mg-10Mg*] 10 ml PO BEDTIME #80 udc MDD 10 Patient Education Materials: Doxycycline (By mouth), Pneumonia (ED) Additional Instructions: Ibuprofen 600mg three times daily Tylenol 500mg three times daily Use both of these medications intermittently Doxycycline 100mg twice daily for 7 days Rest Plenty of fluids Continue to walk around and breathe deep
--- NOTE | 2017-03-24 16:12 | RAD ---
INDICATION: Cough and fever. Congestion. Headache. Noted suspicious lesion on outside chest radiograph unavailable for comparison. COMPARISON: October 03, 2016 chest radiograph and June 29, 2015 CT. TECHNIQUE: Multidetector CT images were obtained from the lung apices to the upper abdomen with 80 mL Omnipaque 300 IV contrast. Multiplanar reformation. REPORT: Airspace consolidation involving the superior segment of the LEFT lower lobe and junction with the basilar segments with air bronchograms most consistent with pneumonia given the clinical context. Negative for pleural effusion or pneumothorax. Negative for thoracic lymphadenopathy, cardiomegaly, pericardial effusion. Unremarkable Limited images through the upper abdomen. Negative for suspicious thoracic osseous lesions. IMPRESSION: LEFT lower lobe pneumonia. The distribution of inflammatory infiltrate is different than on the 2015 exam which involved the LEFT upper lobe. Radiographic follow-up after therapy suggested to assess for resolution.
== END | disposition home or self-care (01) ==
LOC: ED 12:25
DX: R50.9 Fever, unspecified (principal); R05 Cough; J02.9 Acute pharyngitis, unspecified; R09.81 Nasal congestion; R51 Headache; J18.9 Pneumonia, unspecified organism
CPT/HCPCS: 36415; 71260; 80053; 83605; 85025; 86140; 87040; 87502; 99282; A9270-GY; Q9967